=== PATIENT | male | born 1960 | race Caucasian/White ===

== ENCOUNTER 2017-09-10 14:10 | Emergency (ER) | payer SELFPAY ==
[~2017-09-10] VITALS: Ht 172.7 cm; Wt 81.0 kg
[~2017-09-10 14:10] MED LIST: PAIN MEDS; anti inflammatory
[2017-09-10] MEDS ORDERED: SODIUM CHLORIDE 0.9% 1,000 ML IV ONE (14:45)
[2017-09-10] MEDS ORDERED: SODIUM CHLORIDE 0.9% 1,000ML IVBOLUS ONE (15:00)
[2017-09-10] MEDS ORDERED: ONDANSETRON 2MG/ML, 2ML IVPush ONE (15:00)
[2017-09-10] MEDS ORDERED: HYDROmorphone 1 MG/ML, 1ML IVPush PRN (15:00)
[2017-09-10 15:18] LABS: HEMATOCRIT 49.2 % (39.2-51.8); HEMOGLOBIN 16.6 g/dL (13.7-18.0)
[2017-09-10 15:37] LABS: BLOOD UREA NITROGEN 14 mg/dL (7-18)
[2017-09-10] MEDS ORDERED: ONDANSETRON 2MG/ML, 2ML ONE (16:35)
[2017-09-10] MEDS ORDERED: HYDROmorphone 1 MG/ML, 1ML ONE (16:35)
[2017-09-10 18:18] VITALS: BP 127/81
== END 2017-09-10 20:35 | disposition home or self-care (01) ==
LOC: ED 17:48
DX: K40.90 Unilateral inguinal hernia, without obstruction or gangrene, not specified as recurrent (principal); F17.200 Nicotine dependence, unspecified, uncomplicated
CPT/HCPCS: 36415; 76857; 80048; 82040; 85025; 96361; 96374; 96375; 99285; J1170; J2405; J7030

== ENCOUNTER 2017-09-11 18:57 | Inpatient (IN) | payer MEDICAID, OTHER ==
[~2017-09-11] VITALS: Ht 172.7 cm; Wt 82.5 kg
[2017-09-11] MEDS ORDERED: SODIUM CHLORIDE 0.9% 1,000 ML IV ONE (19:04)
[2017-09-11 19:29] LABS: HEMATOCRIT 47.6 % (39.2-51.8); WHITE BLOOD COUNT 9.2 x10^3/uL (3.4-10)
[2017-09-11] MEDS ORDERED: ONDANSETRON 2MG/ML, 2ML IVPush ONE (19:30)
[2017-09-11] MEDS ORDERED: SODIUM CHLORIDE 0.9% 1,000ML IVBOLUS ONE (19:30)
[2017-09-11] MEDS ORDERED: HYDROmorphone 1 MG/ML, 1ML IVPush PRN (19:30)
[2017-09-11] MEDS ORDERED: ONDANSETRON 2MG/ML, 2ML ONE (19:35)
[2017-09-11] MEDS ORDERED: HYDROmorphone 1 MG/ML, 1ML ONE (19:35)
[2017-09-11 19:39] LABS: BLOOD UREA NITROGEN 17 mg/dL (7-18)
[2017-09-11] MEDS ORDERED: KETOROLAC 30 MG/1 ML ONE (22:16)
[2017-09-11] MEDS ORDERED: KETOROLAC 30 MG/1 ML IVPush ONE (22:30)
[2017-09-11] MEDS ORDERED: HYDROmorphone 2 MG/ML, 1ML IVPush PRN (23:30)
[2017-09-11] MEDS ORDERED: ACETAMINOPHEN 325 MG TABLET PO PRN (23:30)
[2017-09-11] MEDS: SODIUM CHLORIDE FLUSH 10ML SYR IVF SCH (23:30)
[2017-09-11] MEDS ORDERED: KETOROLAC 30 MG/1 ML IVPush PRN (23:30)
[2017-09-11] MEDS ORDERED: ONDANSETRON 2MG/ML, 2ML IVPush PRN (23:30)
[2017-09-11] MEDS ORDERED: POLYETHYLENE GLYCOL 17 GM PACKET PO PRN (23:30)
[2017-09-11] MEDS ORDERED: BISACODYL 10 MG SUPP PR PRN (23:30)
[2017-09-12 00:21] VITALS: BP 139/52
[2017-09-12 00:40] VITALS: BP 139/52
[2017-09-12 03:22] LABS: HEMATOCRIT 43.4 % (39.2-51.8); HEMOGLOBIN 14.5 g/dL (13.7-18.0); WHITE BLOOD COUNT 7.4 x10^3/uL (3.4-10)
[2017-09-12 03:28] LABS: ASPARTATE AMINO TRANSFERASE 16 U/L (15-37); BLOOD UREA NITROGEN 19 mg/dL (7-18)
[2017-09-12 07:05] VITALS: BP 118/73
[2017-09-12] MEDS: SODIUM CHLORIDE FLUSH 10ML SYR IVF SCH (08:42)
[2017-09-12] MEDS ORDERED: SODIUM CHLORIDE 0.9% 1,000 ML IV SCH (09:00)
[2017-09-12] MEDS ORDERED: SENNA/DOCUSATE TABLET PO SCH (09:00)
[2017-09-12] MEDS ORDERED: FENTANYL PF 100 MCG/2ML ONE ×2 (12:00)
[2017-09-12] MEDS ORDERED: PROPOFOL 10 MG/ML, 20ML ONE (12:00)
[2017-09-12] MEDS ORDERED: ROCURONIUM 10 MG/ML,10ML ONE (12:00)
[2017-09-12] MEDS ORDERED: MIDAZOLAM 1 MG/ML, 2ML ONE (12:00)
[2017-09-12] MEDS ORDERED: SODIUM CHLORIDE 0.9% PF 10ML ONE (12:01)
[2017-09-12] MEDS ORDERED: CEFAZOLIN 1,000 MG ONE ×2 (12:01)
[2017-09-12] MEDS ORDERED: LACTATED RINGERS 1,000 ML IV SCH (12:08)
[2017-09-12] MEDS ORDERED: BUPIVACAINE/PF 0.5% ONE (12:13)
[2017-09-12] MEDS ORDERED: EPINEPHRINE 1 MG/ML, 1ML ONE (12:13)
[2017-09-12] MEDS ORDERED: OXYcodone 5 MG/5 ML ORAL.SOL UDC PO PRN (12:30)
[2017-09-12] MEDS ORDERED: FENTANYL PF 100 MCG/2ML IV PRN (12:30)
[2017-09-12] MEDS ORDERED: MEPERIDINE/PF 25MG/0.5ML IVPush PRN (12:30)
[2017-09-12] MEDS ORDERED: hydrALAzine 20 MG/ML, 1ML IV PRN (12:30)
[2017-09-12] MEDS ORDERED: LABETALOL 5MG/ML, 20ML IV PRN (12:30)
[2017-09-12] MEDS ORDERED: PROMETHAZINE 25 MG/ML, 1ML IV PRN (12:30)
[2017-09-12] MEDS ORDERED: HYDROmorphone 1 MG/ML, 1ML IV PRN (12:30)
[2017-09-12] MEDS ORDERED: ACETAMINOPHEN 325 MG TABLET PO PRN (12:30)
[2017-09-12] MEDS ORDERED: ONDANSETRON 2MG/ML, 2ML IVPush PRN (12:30)
[2017-09-12] MEDS ORDERED: GLYCOPYRROLATE 0.2MG/1ML, 5ML ONE (12:33)
[2017-09-12] MEDS ORDERED: NEOSTIGMINE 1 MG/ML, 10ML ONE (12:33)
[2017-09-12] MEDS ORDERED: KETOROLAC 30 MG/1 ML ONE (13:10)
[2017-09-12] MEDS ORDERED: OXYcodone 5 MG/5 ML ORAL.SOL UDC ONE (13:53)
[2017-09-12] MEDS ORDERED: ACETAMINOPHEN 650 MG/20.3 ML UDC ONE (13:53)
[2017-09-12 14:35] VITALS: BP 136/72
[2017-09-12] MEDS ORDERED: POLY17PO5 PO (15:48)
[2017-09-12] MEDS ORDERED: IBUP-1221 PO (15:48)
[2017-09-12] MEDS ORDERED: ONDA4TAB7 PO (15:48)
[2017-09-12] MEDS ORDERED: CIPR500T87 PO (15:48)
[2017-09-12] MEDS ORDERED: OXYC1TAB8 PO (15:48)
[2017-09-12] MEDS ORDERED: OXYcodone/APAP 7.5/325MG TABLET PO PRN (16:00)
[2017-09-12 17:15] VITALS: BP 136/67
== END 2017-09-12 17:37 | disposition home or self-care (01) | DRG 350 ==
LOC: ED 22:07 → EDIP 22:10 → 4NOR 09-12 00:11
PROVIDERS: ADMIT Hospitalist; ATTEND Internal Medicine
PROC: 0YQ50ZZ Repair Right Inguinal Region, Open Approach (ICD-10-PCS; principal; 2017-09-12 12:30)
DX: K40.90 Unilateral inguinal hernia, without obstruction or gangrene, not specified as recurrent (principal); E43 Unspecified severe protein-calorie malnutrition; F17.210 Nicotine dependence, cigarettes, uncomplicated; Z68.27 Body mass index [BMI] 27.0-27.9, adult; N43.3 Hydrocele, unspecified; N45.1 Epididymitis; Z90.49 Acquired absence of other specified parts of digestive tract; B19.20 Unspecified viral hepatitis C without hepatic coma; N49.1 Inflammatory disorders of spermatic cord, tunica vaginalis and vas deferens
CPT/HCPCS: 36415; 80048; 80053; 81003; 82040; 83605; 85025; 85610; 96361; 96374; 96375; J0171; J0690; J1170; J1885; J2250; J2405; J2704; J2710; J3010; J3490; J7030; J7120

== ENCOUNTER 2017-09-15 12:00 | Emergency (ER) | payer SELFPAY ==
[~2017-09-15] VITALS: Ht 172.7 cm; Wt 83.7 kg
[~2017-09-15 12:00] MED LIST changes: +CIPR500T87 PO; +IBUP-1221 PO; +ONDA4TAB7 PO; +OXYC1TAB8 PO; +POLY17PO5 PO
[2017-09-15 12:03] VITALS: BP 152/94
[2017-09-15] MEDS ORDERED: OXYcodone/APAP 5/325MG TABLET PO ONE (12:30)
[2017-09-15] MEDS ORDERED: OXYcodone/APAP 5/325MG TABLET ONE (12:31)
[2017-09-15 13:08] LABS: HEMATOCRIT 44.3 % (39.2-51.8); HEMOGLOBIN 15.2 g/dL (13.7-18.0)
== END 2017-09-15 14:29 | disposition home or self-care (01) ==
LOC: ED 14:11
DX: G89.18 Other acute postprocedural pain (principal); R10.2 Pelvic and perineal pain; W01.0XXA Fall on same level from slipping, tripping and stumbling without subsequent striking against object, initial encounter; Y93.89 Activity, other specified; Y99.8 Other external cause status; Y92.89 Other specified places as the place of occurrence of the external cause
CPT/HCPCS: 36415; 76705; 85025; 99285

== ENCOUNTER 2018-10-20 13:00 | Emergency (ER) | payer MEDICAID, OTHER ==
[~2018-10-20] VITALS: Ht 170.2 cm; Wt 79.5 kg
--- NOTE | 2018-10-20 13:24 | NUR ---
TO RADIOLOGY PER HOLA
--- NOTE | 2018-10-20 13:26 | NUR ---
PT REQUESTED CALL BE PLACED TO EX-SPOUSE, KISHORE BHATT ( 56), TO INFORM HER THAT PT IN ED AND ASK HER TO BRING IN HIS MEDICAL CARD. CALL PLACED; KISHORE CONFIRMED & ID'D PT; INFORMATION PASSED ON; ROXY VERBALIZED UNDERSTANDING, STATES SHE'S CURRENTLY AT WORK. Addendum: 10/20/18 at 1331 by MICHELLE KISHORE'S CELL: [phone]
[2018-10-20] MEDS ORDERED: KETOROLAC 60 MG/2 ML IM ONE (14:00)
[2018-10-20 14:06] VITALS: BP 125/73
[2018-10-20] MEDS ORDERED: KETOROLAC 30 MG/1 ML ONE (14:17)
== END 2018-10-20 14:38 | disposition home or self-care (01) ==
LOC: ED 13:44
DX: J20.9 Acute bronchitis, unspecified (principal); H66.92 Otitis media, unspecified, left ear; Z87.891 Personal history of nicotine dependence
CPT/HCPCS: 71046; 96372; 99283; J1885

== ENCOUNTER 2019-01-28 10:58 | Inpatient (IN) | payer MEDICAID ==
[2019-01-26 15:48] VITALS: BP 138/79
[~2019-01-28] VITALS: Ht 172.7 cm; Wt 98.0 kg
[~2019-01-28 10:58] MED LIST changes: +BUPIVACAINE/EPI 0.5% 1:200K ONE; +EPHEDRINE 50 MG/ML, 1ML ONE; +MELO15TA24 PO; +PHENYLEPHRINE 10 MG/ML ONE; +PROPOFOL 10 MG/ML, 20ML ONE; +ROCURONIUM 10MG/ML,5ML ONE; +SUCCINYLCHOLINE 20 MG/ML, 10ML ONE
[2019-01-28] MEDS ORDERED: LACTATED RINGERS 1,000 ML IV SCH (11:11)
[2019-01-28] MEDS ORDERED: VITAMIN C PO (11:15)
[2019-01-28] MEDS ORDERED: TUMERIC PO (11:15)
[2019-01-28] MEDS ORDERED: IBUPROFEN PO (11:15)
[2019-01-28] MEDS ORDERED: VITAMIN E PO (11:15)
[2019-01-28] MEDS ORDERED: MIDAZOLAM 1 MG/ML, 2ML ONE (11:22)
[2019-01-28] MEDS ORDERED: FENTANYL PF 250 MCG/5ML ONE (11:23)
[2019-01-28] MEDS ORDERED: ACETAMINOPHEN 500 MG TABLET PO ONE (11:30)
[2019-01-28] MEDS ORDERED: GABAPENTIN 300 MG CAPSULE PO ONE (11:30)
[2019-01-28] MEDS ORDERED: OXYcodone IR 5MG TABLET PO ONE (11:30)
[2019-01-28] MEDS ORDERED: FAMOTIDINE 20 MG TABLET PO ONE (11:30)
[2019-01-28] MEDS ORDERED: NEOSTIGMINE 1 MG/ML, 10ML ONE (11:42)
[2019-01-28] MEDS ORDERED: CEFAZOLIN 1,000 MG ONE (11:42)
[2019-01-28] MEDS ORDERED: ONDANSETRON 2MG/ML, 2ML ONE (11:42)
[2019-01-28] MEDS ORDERED: GLYCOPYRROLATE 0.2MG/1ML, 5ML ONE (11:42)
[2019-01-28] MEDS ORDERED: DEXAMETHASONE 4 MG/ML, 1ML ONE ×2 (11:53)
[2019-01-28] MEDS: D5%-0.45NACL+KCL 20MEQ 1,000 ML IV SCH ×2 (13:07→21:07)
[2019-01-28] MEDS ORDERED: morphine SULFATE 10 MG/ML, 1ML IVPush PRN (13:30)
[2019-01-28] MEDS ORDERED: ENALAPRILAT 1.25 MG/ML, 2ML IVPush PRN (13:30)
[2019-01-28] MEDS ORDERED: ACETAMINOPHEN 325 MG TABLET PO PRN (13:30)
[2019-01-28] MEDS ORDERED: LABETALOL 5MG/ML, 20ML IVPush PRN (13:30)
[2019-01-28] MEDS ORDERED: ONDANSETRON 2MG/ML, 2ML IVPush PRN (13:30)
[2019-01-28] MEDS ORDERED: OXYcodone 5 MG/5 ML ORAL.SOL UDC ONE (13:57)
[2019-01-28] MEDS ORDERED: OXYcodone 5 MG/5 ML ORAL.SOL UDC PO PRN (14:00)
[2019-01-28] MEDS ORDERED: FENTANYL PF 100 MCG/2ML IV PRN (14:00)
[2019-01-28 19:33] VITALS: BP 121/79
[2019-01-28 20:19] VITALS: BP 121/79
[2019-01-28] MEDS: OXYcodone/APAP 7.5/325MG TABLET PO PRN (20:37)
[2019-01-29 00:06] VITALS: BP 108/70
[2019-01-29 04:09] VITALS: BP 103/67
[2019-01-29] MEDS: D5%-0.45NACL+KCL 20MEQ 1,000 ML IV SCH (05:07)
[2019-01-29] MEDS: OXYcodone/APAP 7.5/325MG TABLET PO PRN ×3 (05:52→23:13)
[2019-01-29 08:42] VITALS: BP 119/63
[2019-01-29 13:59] VITALS: BP 127/75
[2019-01-29 19:42] VITALS: BP 106/66
[2019-01-30 01:22] VITALS: BP 113/72
[2019-01-30] MEDS: OXYcodone/APAP 7.5/325MG TABLET PO PRN ×2 (06:25→14:38)
[2019-01-30 07:16] VITALS: BP 107/70
[2019-01-30] MEDS ORDERED: OXYC-306 PO (09:13)
[2019-01-30 13:43] VITALS: BP 125/79
[2019-01-30 17:13] VITALS: BP 117/76
== END 2019-01-30 17:50 | disposition home or self-care (01) | DRG 355 ==
LOC: OUT 10:58 → UNDOADMOB 13:07 → ORIP 13:07 → 4NOR 18:25 → ORIP 01-29 12:29 → OBSVTOIN 01-29 12:30
PROVIDERS: ADMIT Surgery; ATTEND Surgery
PROC: 0WUF0JZ Supplement Abdominal Wall with Synthetic Substitute, Open Approach (ICD-10-PCS; principal; 2019-01-28 13:00)
DX: K43.9 Ventral hernia without obstruction or gangrene (principal); Z59.0 Homelessness
CPT/HCPCS: 93005; C1729; J0690; J1100; J2250; J2405; J2704; J2710; J3010; J3490; C1781; G0378; J0330; J2370; J7120